=== PATIENT | female | born 1995 | race Caucasian/White ===

== ENCOUNTER 2023-06-09 17:09 | Emergency (ER) | payer OTHER ==
[~2023-06-09] VITALS: Ht 154.9 cm; Wt 62.1 kg
[2023-06-09 17:15] VITALS: BP 113/74; PULSE 67; RESP 18; TEMP 97.4; O2SAT 100
[2023-06-09] MEDS ORDERED: KETOROLAC 30 MG/ML VIAL IM ONE (17:35)
[2023-06-09] MEDS ORDERED: LIDOCAINE 5% 1 EA PATCH TP ONE (18:35)
[2023-06-09] MEDS ORDERED: LIDO1ADH38 TP (19:11)
--- NOTE | 2023-06-09 19:30 | NUR ---
ASSUMED CARE OF PT
--- NOTE | 2023-06-09 19:40 | NUR ---
Patient discharged with v/s stable. Written and verbal after care instructions given and explained. Patient alert, oriented and verbalized understanding of instructions. Ambulatory with steady gait. All questions addressed prior to discharge. ID band removed. Patient advised to follow up with PMD. Rx of LIDOCAIN PATCH given. Patient educated on indication of medication including possible reaction and side effects. Opportunity to ask questions provided and answered.
[2023-06-10] MEDS ORDERED: LIDOCAINE 5% 1 EA PATCH TP SCH (09:00)
== END 2023-06-09 19:40 | disposition home or self-care (01) ==
LOC: MED 17:09
DX: M54.42 Lumbago with sciatica, left side (principal); Z79.899 Other long term (current) drug therapy
CPT/HCPCS: 72110; 96372; 99283; J1885